=== PATIENT | female | born 1990 ===

== ENCOUNTER → 2017-03-10 | Outpatient (REF) ==
[2017-03-10 20:05] LABS: CHLAMYDIA/TRACH by PCR Female NOT DETECTED; NEISSERIA GON by PCR Female NOT DETECTED
== END ==
LOC: ZLAB.WCH 18:09
PROVIDERS: Nurse Practitioner Family
DX: A74.9 Chlamydial infection, unspecified (principal)

== ENCOUNTER → 2018-05-18 | Outpatient (REF) | LOC: ZLAB.WCH 08:37 | DX: Z01.89 Encounter for other specified special examinations (principal) ==